=== PATIENT | male | born 1995 | race Caucasian/White ===

== ENCOUNTER 2022-08-18 13:30 | Emergency (ER) | payer SELFPAY ==
[~2022-08-18] VITALS: Ht 165.1 cm; Wt 84.1 kg
[2022-08-18] MEDS ORDERED: IBUPROFEN 600 MG TABLET PO ONE (14:45)
[2022-08-18 18:00] VITALS: BP 137/68
== END 2022-08-18 18:10 | disposition home or self-care (01) ==
LOC: EMS 13:56
DX: S13.4XXA Sprain of ligaments of cervical spine, initial encounter (principal); S20.219A Contusion of unspecified front wall of thorax, initial encounter; V89.2XXA Person injured in unspecified motor-vehicle accident, traffic, initial encounter; Y93.89 Activity, other specified; Y92.89 Other specified places as the place of occurrence of the external cause; Y99.8 Other external cause status
CPT/HCPCS: 71045; 72125; 99284